=== PATIENT | male | born 1970 | race Two or more races ===

== ENCOUNTER 2020-06-18 18:40 | Emergency (ER) | payer BC ==
[~2020-06-18] VITALS: Ht 182.9 cm; Wt 79.4 kg
[2020-06-18] MEDS ORDERED: LISINOPRIL2.5 MG PO (19:11)
[2020-06-18] MEDS ORDERED: ATORVASTATIN CA40 MG PO (19:11)
[2020-06-18] MEDS ORDERED: TOPROL XL50 M1 PO (19:12)
[2020-06-18] MEDS ORDERED: PEPCID AC20 MG PO (19:12)
== END 2020-06-18 20:53 | disposition home or self-care (01) ==
LOC: ER 18:40
DX: L03.116 Cellulitis of left lower limb (principal); L55.1 Sunburn of second degree; L56.8 Other specified acute skin changes due to ultraviolet radiation; X32.XXXA Exposure to sunlight, initial encounter; Y93.89 Activity, other specified; Y92.89 Other specified places as the place of occurrence of the external cause; Y99.8 Other external cause status